=== PATIENT | male | born 1935 | race Caucasian/White ===

== ENCOUNTER → 2020-01-27 | Outpatient (CLI) | payer MEDICARE, OTHER ==
[~2020-01-27] MED LIST: ASPI325EC PO; ASPI81CH; ASPI81EC PO; CLOP75 PO; METO25ER PO; NITRSPRAY SL; RED YEAST RICE; TRAM50 PO; VITAMIN D PO
== END | disposition home or self-care (01) ==
LOC: LAB 14:03 → LAB SHORT 14:03
DX: L72.3 Sebaceous cyst (principal)
CPT/HCPCS: 87070; 87075; 87205

== ENCOUNTER 2025-01-27 10:35 | Inpatient (IN) | payer MEDICARE, BC ==
[~2025-01-27] VITALS: Ht 175.3 cm; Wt 76.4 kg
[~2025-01-27 10:35] MED LIST changes: +Aspir 8181 MG PO
[2025-01-27 12:52] LABS: Creatinine (POC) 0.9 mg/dL (0.8-1.3)
[2025-01-27 13:03] LABS: Base Excess Venous -10.7 mmol/L; Bicarbonate Venous 17.1 mmol/L (24.0-30.0); PCO2 Venous 33.5 mmHg (38-42)
[2025-01-27 13:05] LABS: pH Blood Venous 7.29 (7.34-7.37)
[2025-01-27 13:26] LABS: BASOPHILS ABSOLUTE AUTO 0.02 K/mm3 (0.00-0.23); BASOPHILS PERCENT AUTO 0 % (0-2); EOSINOPHILS PERCENT AUTO 0 % (0-6); Hematocrit 49.9 % (37.0-53.0); Hemoglobin 16.8 g/dL (13.5-17.5); IMMATURE GRAN ABSOLUTE AUTO 0.06 K/mm3 (0.00-0.10); IMMATURE GRAN PERCENT AUTO 0 % (0-1); LYMPHOCYTES ABSOLUTE AUTO 0.41 K/mm3 (0.84-5.20); LYMPHOCYTES PERCENT AUTO 3 % (21-46); MONOCYTES ABSOLUTE AUTO 1.14 K/mm3 (0.16-1.47); MONOCYTES PERCENT AUTO 9 % (4-13); Mean Corpuscular HGB 31.6 pg (26.0-34.0); Mean Corpuscular HGB Conc 33.7 g/dL (31.5-36.5); Mean Corpuscular Volume 94 fL (80-100); Mean Platelet Volume 11.1 fL (9.1-12.4); NEUTROPHILS ABSOLUTE AUTO 11.76 K/mm3 (1.96-9.15); NEUTROPHILS PERCENT AUTO 88 % (41-73); Platelet Count 222 K/mm3 (150-400); RDW Coefficient Variation 13.7 % (11.7-14.2); RDW Standard Deviation 46.7 fL (35.1-46.3); Red Blood Cell Count 5.32 M/mm3 (4.30-5.90); White Blood Cell Count 13.39 K/mm3 (4.00-11.30)
[2025-01-27] MEDS ORDERED: Doxycycline Hyclate 100 MG TAB PO ONE (14:30)
[2025-01-27] MEDS ORDERED: CefTRIAXone Sodium 1,000 MG in NS 100 ML IV ONE (14:30)
[2025-01-27 14:32] LABS: Bun/Creatinine Ratio 63.8 (12.0-20.0); Calcium, Blood 8.9 mg/dL (8.5-10.1); Creatinine, Blood 0.83 mg/dL (0.60-1.20); Potassium, Blood 4.6 mmol/L (3.5-5.5)
[2025-01-27] MEDS ORDERED: Lidocaine 2% Jelly Uro-Jet UR ONE (14:35)
[2025-01-27] MEDS ORDERED: NS 1,000 ML IV SCH ×2 (14:45→16:55)
[2025-01-27 15:12] LABS: Source, Urine Clean Catch
[2025-01-27 15:18] LABS: Appearance, Urine Clear (Clear); Bilirubin, Urine Neg (Neg); Blood, Urine 3+ (Neg); Color, Urine Amber (P-Yellow); Glucose Qualitative, Urine Neg (Neg); Ketones, Urine 4+ (Neg); Leukocyte Esterase, Urine Neg (Neg); Nitrite, Urine Neg (Neg); Protein, Urine 2+ (Neg); Specific Gravity, Urine 1.025 (1.003-1.022); Urobilinogen, Urine NORM (Normal)
[2025-01-27 15:35] LABS: Bacteria Many /hpf; Hyaline Casts 25-50 /lpf (0-2); Mucus Light (0-Heavy); Red Blood Cells, Urine 0-2 /hpf (0-2); Squamous Epithelial Cells Few /hpf (Few)
[2025-01-27] MEDS ORDERED: Doxycycline Hyclate 100 MG in Dextrose 5% 250 ML IV SCH ×2 (17:30→21:00)
[2025-01-27 18:57] VITALS: BP 141/73
[2025-01-27] MEDS ORDERED: Lactobacil 2-S.Thermo-Bifido 1 1 Cap PO SCH (21:00)
[2025-01-28 00:15] VITALS: BP 111/63
[2025-01-28] MEDS ORDERED: Albuterol 2.5 MG/3 ML VIAL INH PRN (03:50)
[2025-01-28 04:23] VITALS: BP 103/61
[2025-01-28 04:52] LABS: Hematocrit 44.4 % (37.0-53.0); Hemoglobin 14.8 g/dL (13.5-17.5); Mean Corpuscular HGB 31.4 pg (26.0-34.0); Mean Corpuscular HGB Conc 33.3 g/dL (31.5-36.5); Mean Corpuscular Volume 94 fL (80-100); Mean Platelet Volume 10.8 fL (9.1-12.4); Platelet Count 151 K/mm3 (150-400); RDW Standard Deviation 48.5 fL (35.1-46.3); Red Blood Cell Count 4.71 M/mm3 (4.30-5.90); White Blood Cell Count 12.24 K/mm3 (4.00-11.30)
--- NOTE | 2025-01-28 05:17 | NUR ---
Shift Summary Pt admitted to this unit from ED for pneumonia. He was found down for days at his residence and has various wounds, most notably an excoriation on his R mar and a large blister on his R abdomen. Pictures are in the chart of all wounds. No wounds are actively bleeding or discharging. He is AOx3, has mumbled speech, extremities are all weak and uncoordinated. He has been lethargic and somnolent t/o the shift. He has a hx of PAD and has very poor peripheral perfusion, finger probe SPO2 readings are unreliable. He is on cont O2 monitor with an ear probe on RA and his SPO2 has been greater than 95% t/o the night with no desaturations. Rcving NS @ 100. Lungs are coarse and he had heavy thick secretions, he's able to cough them up to the back of the throat and than I used bed side suction to remove them which improved his lung sounds and breathing.
[2025-01-28 05:18] LABS: Bun/Creatinine Ratio 54.9 (12.0-20.0); Calcium, Blood 8.4 mg/dL (8.5-10.1); Creatinine, Blood 0.87 mg/dL (0.60-1.20); Magnesium, Blood 2.5 mg/dL (1.6-2.4); Potassium, Blood 4.2 mmol/L (3.5-5.5); Thyroid Stimulating Hormone 2.93 uIU/mL (0.360-4.800)
[2025-01-28 05:19] LABS: BAND PERCENT MAN 22 % (0-8); BASOPHILS PERCENT MAN 0 % (0-2); EOSINOPHILS PERCENT MAN 0 % (0-6); LYMPHOCYTES ABSOLUTE MAN 0.36 K/mm3 (0.84-5.20); LYMPHOCYTES PERCENT MAN 3 % (21-46); METAMYELOCYTE ABSOLUTE MAN 0.12 K/mm3 (0.00-0.00); METAMYELOCYTE PERCENT MAN 1 % (0-0); MONOCYTES ABSOLUTE MAN 0.73 K/mm3 (0.16-1.47); MONOCYTES PERCENT MAN 6 % (4-13); MYELOCYTE ABSOLUTE MAN 0.12 K/mm3 (0.00-0.00); MYELOCYTE PERCENT MAN 1 % (0-0); NEUTROPHILS ABSOLUTE MAN 10.89 K/mm3 (1.96-9.15); SEG NEUTROPHILS PERCENT MAN 67 % (41-73); TOTAL CELLS COUNTED 100
[2025-01-28 07:32] VITALS: BP 109/63
[2025-01-28] MEDS ORDERED: Enoxaparin 40 MG/0.4 ML SYR SC SCH (09:00)
[2025-01-28] MEDS ORDERED: CefTRIAXone Sodium 1,000 MG in NS 100 ML IV SCH (09:00)
[2025-01-28] MEDS ORDERED: Aspirin 81 MG TabEC PO SCH (09:00)
[2025-01-28] MEDS ORDERED: Sodium Bicarbonate 650 MG Tab PO SCH (10:00)
[2025-01-28 15:11] VITALS: BP 136/68
--- NOTE | 2025-01-28 18:27 | NUR ---
SHIFT SUMMARY PT A&OX2 W/ SOME CONFUSION, VSS, BEDRIDDEN AT THIS TIME, VOIDING W/ HOPE IN PLACE, AND DENIED PAIN. PT REMAINS NPO W/ NON ORAL MEDS, SEE SPEECH EVAL NOTE. NS CONT TO INFUSE PER ORDER. SUCTION AT BEDSIDE FOR SECRETIONS, PT UNABLE TO CLEAR ON OWN. NO OTHER ACUTE CHANGES. CALL LIGHT WITHIN REACH AND BED ALARM ON FOR SAFETY. SON AT BEDSIDE ASSISTING W/ CARE.
[2025-01-28 19:21] VITALS: BP 110/56
[2025-01-29 00:02] VITALS: BP 120/72
[2025-01-29 05:16] VITALS: BP 115/69
[2025-01-29 05:26] LABS: BASOPHILS ABSOLUTE AUTO 0.02 K/mm3 (0.00-0.23); BASOPHILS PERCENT AUTO 0 % (0-2); EOSINOPHILS PERCENT AUTO 0 % (0-6); Hematocrit 38.3 % (37.0-53.0); Hemoglobin 12.9 g/dL (13.5-17.5); IMMATURE GRAN ABSOLUTE AUTO 0.03 K/mm3 (0.00-0.10); IMMATURE GRAN PERCENT AUTO 0 % (0-1); LYMPHOCYTES ABSOLUTE AUTO 0.36 K/mm3 (0.84-5.20); LYMPHOCYTES PERCENT AUTO 3 % (21-46); MONOCYTES ABSOLUTE AUTO 1.08 K/mm3 (0.16-1.47); MONOCYTES PERCENT AUTO 9 % (4-13); Mean Corpuscular HGB 31.6 pg (26.0-34.0); Mean Corpuscular HGB Conc 33.7 g/dL (31.5-36.5); Mean Corpuscular Volume 94 fL (80-100); NEUTROPHILS ABSOLUTE AUTO 10.09 K/mm3 (1.96-9.15); NEUTROPHILS PERCENT AUTO 87 % (41-73); Platelet Count 130 K/mm3 (150-400); RDW Coefficient Variation 14.3 % (11.7-14.2); RDW Standard Deviation 49.1 fL (35.1-46.3); Red Blood Cell Count 4.08 M/mm3 (4.30-5.90); White Blood Cell Count 11.58 K/mm3 (4.00-11.30)
--- NOTE | 2025-01-29 05:29 | NUR ---
SHIFT SUMMARY PT DROWSY, SLEEPING INTERMITTENTLY DURING THE NIGHT, ORIENTED X 2-3. PT WITH WEAK COUGH, ABLE TO CLEAR SOME SECRETIONS, ORALLY SUCTIONED NEEDED. PT ON ROOM AIR WITH CONTINUOUS PULSE OX- SATS WNL. PT REMAINS STRICTLY NPO WITH IVF INFUSING. IV ANTIBIOTICS CONTINUE PER ORDER. DRSG TO RUQ BLISTER C/D/I. MEPELEX TO LEFT HIP C/D/I. OPEN WOUND TO RIGHT HERNANDEZ WITH SOME SEROUS DRAINAGE. PT REPOSITIONED Q 2 HOURS WITH PILLOWS. HOPE DRAINING LAURA COLORED URINE, NO BM THIS SHIFT. BED IN LOWEST POSITION, CALL LIGHT WITHIN REACH, SIDERAILS UP X3.
[2025-01-29 05:50] LABS: Bun/Creatinine Ratio 48.6 (12.0-20.0); Calcium, Blood 7.9 mg/dL (8.5-10.1); Creatinine, Blood 0.66 mg/dL (0.60-1.20); Potassium, Blood 3.5 mmol/L (3.5-5.5)
[2025-01-29 07:28] VITALS: BP 132/73
[2025-01-29] MEDS ORDERED: Dextrose 5% 1,000 ML IV SCH (10:20)
[2025-01-29 11:11] VITALS: BP 142/62
[2025-01-29] MEDS ORDERED: FentaNYL Citrate 50 MCG/ML 2 ML Injection IV PRN (11:30)
--- NOTE | 2025-01-29 11:48 | NUR ---
ROUNDED ON PATIENT. HE WAS SLEEPING AT THIS TIME. DISCUSSED CASE WITH BEDSIDE RN AND PROVIDER. DISCUSSED PLAN OF CARE. PATIENTS SON LIVES IN [place].
[2025-01-29 15:44] VITALS: BP 115/68
[2025-01-29] MEDS ORDERED: ZINC OXIDE/PETROLATUM, YELLOW 1 APPLIC/71 GM PASTE TOP PRN (18:05)
--- NOTE | 2025-01-29 19:19 | NUR ---
SHIFT SUMMARY A&O X1. REPOSTION X2. PAINFUL. ORDER OBTAINED FOR FENTANYL IVP. IV CHANGED TO D5 DUE TO INCREASED SODIUM LEVELS. FREQUENT MOUTH CARE. CONTINUE WITH IV ABX. BED IN LOW POSITION. CALL LIGHT WITHIN REACH
[2025-01-29 21:15] VITALS: BP 101/48
[2025-01-30 01:21] VITALS: BP 110/58
[2025-01-30 05:47] LABS: BASOPHILS ABSOLUTE AUTO 0.01 K/mm3 (0.00-0.23); BASOPHILS PERCENT AUTO 0 % (0-2); EOSINOPHILS ABSOLUTE AUTO 0.03 K/mm3 (0.00-0.68); EOSINOPHILS PERCENT AUTO 0 % (0-6); Hematocrit 39.6 % (37.0-53.0); Hemoglobin 13.1 g/dL (13.5-17.5); IMMATURE GRAN PERCENT AUTO 1 % (0-1); LYMPHOCYTES PERCENT AUTO 5 % (21-46); MONOCYTES ABSOLUTE AUTO 1.19 K/mm3 (0.16-1.47); MONOCYTES PERCENT AUTO 9 % (4-13); Mean Corpuscular HGB 31.7 pg (26.0-34.0); Mean Corpuscular HGB Conc 33.1 g/dL (31.5-36.5); Mean Corpuscular Volume 96 fL (80-100); Mean Platelet Volume 10.9 fL (9.1-12.4); NEUTROPHILS ABSOLUTE AUTO 11.13 K/mm3 (1.96-9.15); NEUTROPHILS PERCENT AUTO 85 % (41-73); Platelet Count 110 K/mm3 (150-400); RDW Coefficient Variation 14.3 % (11.7-14.2); RDW Standard Deviation 49.8 fL (35.1-46.3); Red Blood Cell Count 4.13 M/mm3 (4.30-5.90); White Blood Cell Count 13.16 K/mm3 (4.00-11.30)
--- NOTE | 2025-01-30 05:56 | NUR ---
SHIFT SUMMARY: PT AOX1 OBTUNDENT, RESPONDING TO NAME AND ABLE TO ANSWER SOME YES OR NO QUESTIONS. OPENS EYES WIDE AT TIMES AND THEN RETURNS TO SLEEP. SOME PRODUCTIVE COUGH AND EITHER SPITS OUT OR SWALLOWS SPUTUM. PT VERY PAINFUL WITH TURNS, MEDICATED PRIOR TO TURNS AND ORAL CARE PERFORMED WITH TURNS. HOB UP TO PROMOTE COUGH. SOME PRODUCTIVE STRONG COUGHS THEN RETURNS TO SLEEPING. HOPE IN PLACE PRODUCING LITTLE OUTPUT WTH SEDIMENT IN THE URINE. PT COOPERATIVE IN CARE, AND FOLLOWS SOME COMMANDS THOUGH IS VERY WEAK AND NOT ABLE TO ASSIST WITH MUCH. NO ACUTE EVENTS OVERNIGHT. PT IN BED SLEEPING, BED IN LOWEST POSITION, CALL LIGHT IN REACH. CONTINUING CARE.
[2025-01-30 06:09] LABS: Bun/Creatinine Ratio 43.6 (12.0-20.0); Calcium, Blood 8.2 mg/dL (8.5-10.1); Creatinine, Blood 0.57 mg/dL (0.60-1.20); Potassium, Blood 3.3 mmol/L (3.5-5.5)
[2025-01-30 07:13] VITALS: BP 116/67
[2025-01-30] MEDS ORDERED: Potassium Chl 20MEQ/Water100ML 100 ML IV STA (09:11)
[2025-01-30] MEDS ORDERED: NS 250 ML IV PRN (09:40)
[2025-01-30 11:19] VITALS: BP 118/69
[2025-01-30 12:13] LABS: Bilirubin, Total 0.7 mg/dL (0.1-1.0); Magnesium, Blood 2.3 mg/dL (1.6-2.4); Phosphorus, Blood 1.3 mg/dL (2.5-4.9)
--- NOTE | 2025-01-30 12:33 | NUR ---
ROUNDED ON PATIENT. DISCUSSED WITH BEDSIDE RN, PROVIDER, AND DIETITION. PATIENT HAD REFUSED DOBB DOMINIC, BUT WAS AGREEABLE TO IV NUTRITION. PATIENT IS PARTICIPATING MORE IN CONVERSATIONS TODAY. CALLED PATIENTS SON AND UPDATED ON PATIENTS PROGRESS AND PLAN. PROVIDED THERAPUTIC LISTENING. PATIENT WAS INDEPENDENT PRIOR TO THIS. THERE HAD BEEN SOME DISCUSSIONS ABOUT SANAM MOVING TO [place] TO BE CLOSER TO HIS SON. CARLITA RELAYED THAT THEY WILL NEED TO DISCUSS THIS AGAIN.
[2025-01-30] MEDS ORDERED: TPN Consult Notification XX ONE (13:15)
[2025-01-30 15:48] VITALS: BP 115/59
[2025-01-30] MEDS ORDERED: Parenteral Electolytes 40 ML,Potassium Phosphate Dibasic 30 MM,Multivitamins 10 ML,ZINC... IV SCH (17:00)
--- NOTE | 2025-01-30 18:28 | NUR ---
SHIFT SUMMARY PT A&OX2 AND CONFUSED AT TIMES, VSS, BEDRIDDEN AT THIS TIME, NPO, VOIDING URINE VIA HOPE, AND PAIN MANAGED PER EMAR. SPEECH EVAL THIS AM AND PT NOT READY FOR PO INTAKE, SEE THERAPY NOTE. ZAHEER POWERGLIDE PLACED AND PPN INFUSING PER ORDER. K LOW AND IV INF K GIVEN. PT CONT TO BE EDEMATOUS IN THE LUE, VENOUS DUPLEX ORDERED. CALL LIGHT WITHIN REACH.
[2025-01-30 19:31] VITALS: BP 137/79
--- NOTE | 2025-01-30 20:37 | NUR ---
HOSPITALIST CALLED BECAUSE ON DAYSHIFT IMAGING NOTIFIED RN OF Short "segment superficial venous thrombus in the cephalic vein above the level the elbow".I CONTACTED HOSPITALIST AND NOTIFIED HIM OF RESULTS AND OF NOW HE HAD NO FURTHER RECOMENDATIONS AND IS AWARE OF RESULTS. CALLED AT 1954
[2025-01-31] VITALS (7 sets, daily range): BP systolic 124–134; BP diastolic 69–78
--- NOTE | 2025-01-31 04:31 | NUR ---
SHIFT SUMM: PT IS A 89 YP DNR WHO WAS ADMITTED FOR A FALL AND FOUND DOWN AT HOME. PT IS A&OX2-3 AND IS FORGETFUL. PT HAS A PATENT ZAHEER PG WITH PPN INFUSING CONTINUOUSLY @100ML/HR.PT IS NPO FOR DYSPHAGIA AND FAILED SWALLOW STUDY.PT IS VERY WEAK AND CURRENTLY BEDREST. PT IS PAINFUL EVERYWHERE AND MEDICATED PER EMAR.PT HAS OFTEN VOICED TONIGHT THAT "THIS IS NO WAY TO LIVE" AND "I DONT WANT TO KEEP GOING ON LIKE THIS". PT IS ON CONT PULSE OX BUT RA. PT HAS A PATENT HOPE DRAINING TO GRAVITY. PT HAS A SWOLLEN L ARM FROM SUPERFICIAL VENOUS THROMBUS (SEE PREV NOTE). 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 PT HAS A BLISTER IN RUQ, L HIP MEPILEX IN PLACE FOR ULCER PREV. AND SCATTERED SMALL WOUNDS AND BRUSING ALL OVER BODY. PT HAS CALL LIGHT IN REACH AND BED ALARM SET FOR SAFETY.
[2025-01-31 05:41] LABS: BASOPHILS ABSOLUTE AUTO 0.03 K/mm3 (0.00-0.23); BASOPHILS PERCENT AUTO 0 % (0-2); EOSINOPHILS ABSOLUTE AUTO 0.12 K/mm3 (0.00-0.68); EOSINOPHILS PERCENT AUTO 1 % (0-6); Hemoglobin 12.5 g/dL (13.5-17.5); IMMATURE GRAN PERCENT AUTO 1 % (0-1); LYMPHOCYTES ABSOLUTE AUTO 0.71 K/mm3 (0.84-5.20); LYMPHOCYTES PERCENT AUTO 7 % (21-46); MONOCYTES ABSOLUTE AUTO 1.23 K/mm3 (0.16-1.47); MONOCYTES PERCENT AUTO 12 % (4-13); Mean Corpuscular HGB 31.6 pg (26.0-34.0); Mean Corpuscular HGB Conc 32.9 g/dL (31.5-36.5); Mean Corpuscular Volume 96 fL (80-100); Mean Platelet Volume 10.8 fL (9.1-12.4); NEUTROPHILS ABSOLUTE AUTO 7.72 K/mm3 (1.96-9.15); NEUTROPHILS PERCENT AUTO 78 % (41-73); Platelet Count 121 K/mm3 (150-400); RDW Coefficient Variation 14.2 % (11.7-14.2); RDW Standard Deviation 49.4 fL (35.1-46.3); Red Blood Cell Count 3.96 M/mm3 (4.30-5.90); White Blood Cell Count 9.91 K/mm3 (4.00-11.30)
[2025-01-31 06:13] LABS: Anion Gap 8 mmol/L (3-11); Blood Urea Nitrogen 26 mg/dL (8-24); Bun/Creatinine Ratio 41.6 (12.0-20.0); CO2, Blood 26 mmol/L (21-32); Calcium, Blood 7.9 mg/dL (8.5-10.1); Chloride, Blood 112 mmol/L (98-108); Creatinine, Blood 0.63 mg/dL (0.60-1.20); Glomerular Filtration Rate 91 (60-); Glucose, Blood 110 mg/dL (70-99); Magnesium, Blood 2.4 mg/dL (1.6-2.4); Phosphorus, Blood 1.8 mg/dL (2.5-4.9); Potassium, Blood 3.7 mmol/L (3.5-5.5); Sodium, Blood 142 mmol/L (136-145); Triglycerides 113 mg/dL (30-160)
[2025-01-31] MEDS ORDERED: Sodium Phosphate 30 MM in Dextrose 5% 500 ML IV STA (09:41)
[2025-01-31] MEDS ORDERED: Sodium Phosphate 30 MM in Dextrose 5% 500 ML IV SCH (12:00)
[2025-01-31] MEDS ORDERED: FentaNYL Citrate 50 MCG/ML 2 ML Injection IV ONE (15:00)
--- NOTE | 2025-01-31 17:09 | NUR ---
SHIFT SUMMARY: PATIENT A/O TO SELF, PLACED AND PERSON. PATIENT DENIES CP/PRESSURE, SOB, N/V AND DIZZINESS. PATIENT ON TELE, A-FIB, HR IN THE HIGH 80'S BPM c OCCASIONAL PVC. PATIENT WAS SEEN c ST, TODAY. PER ST, OKAY TO HAVE SIP OF H20 VIA SPOON, BUT STILL NPO STATUS. PATIENT REFUSED TUBE FEEDING ROUTE. PER PATIENT NO FEEDING VIA TUBE, STATED "ABSOLUTELY NOT". PATIENT HAS SUPERFACIAL VENOUS THROMBOUS TO L ARM AND STILL SWOLLEN, POWERGLIDE TO R UPPER ARM. PATIENT PPN WAS HELD SINCE 921 THIS AM D/T LIMITED IV ACCESS. DR. KIDD IS AWARE OF THIS CONCERNED. PATIENT RECEIVED IV ABX AND OT DOSE IV SODIUM PHOS PER ORDER. PATIENT REPORTS GENERALIZED PAIN, MEDICATED FOR PAIN PER EMAR c MOD EFFECT. PATIENT WORK c PT TODAY, RECOMMENDING SNF. PATIENT SAT UP IN THE CHAIR FOR ABOUT 3 HRS. PATIENT HAS HOPE FOR ACUTE RETENTION, PATENT DRAINING LAURA COLOR URINE TO GRAVITY. PATIENT REPOSITIONED AND ORAL CARE DONE T/O SHIFT. MIPELEX DRESSING CHANGED TO L HIP AND COCCYX. EXUDRY DRESSING CHANGED TO R ABDOMEN. BED ALARM ON FOR SAFETY. CALL LIGHT IN REACH. UPDATE GIVEN TO PATIENT SON (CARLITA) TODAY, HE VERBALIZED UNDERSTANDING. PER CARLITA HE WILL BE COMING TOMORROW TO VISIT HIS DAD.
[2025-01-31] MEDS ORDERED: NS 1,000 ML BAG IR SCH (21:45)
--- NOTE | 2025-02-01 03:18 | NUR ---
SHIFT SUMMARY PATIENT HAS REQUESTED SOME PAIN MEDICATION AND APPEARS TO BE RESTING COMFORTABLY AT THIS TIME. EARLIER IN THE SHIFT HIS RIGHT POWERGLIDE CLOTTED OFF. IV NURSE CAME WITH US AND PLACED A NEW PERIPHERAL IV. WAS NOTIFIED. PPN BEING HELD UNTIL TOMORROW AND NS AT 75ML HAS BEEN ORDERED. VITAL SIGNS ARE STABLE. IV ABX INFUSED WITHOUT COMPLICATIONS. PATIENT IS ORIENTED X3. HE HAS HIS CALL LIGHT WITHIN REACH AND BED ALARM IS SET. SAFETY PRECAUTIONS ARE BEING MAINTAINED.
[2025-02-01 04:06] VITALS: BP 126/71
[2025-02-01 06:53] LABS: BASOPHILS ABSOLUTE AUTO 0.04 K/mm3 (0.00-0.23); BASOPHILS PERCENT AUTO 0 % (0-2); EOSINOPHILS ABSOLUTE AUTO 0.12 K/mm3 (0.00-0.68); EOSINOPHILS PERCENT AUTO 1 % (0-6); Hematocrit 37.7 % (37.0-53.0); Hemoglobin 12.5 g/dL (13.5-17.5); IMMATURE GRAN ABSOLUTE AUTO 0.13 K/mm3 (0.00-0.10); IMMATURE GRAN PERCENT AUTO 1 % (0-1); LYMPHOCYTES ABSOLUTE AUTO 0.69 K/mm3 (0.84-5.20); LYMPHOCYTES PERCENT AUTO 8 % (21-46); MONOCYTES ABSOLUTE AUTO 1.26 K/mm3 (0.16-1.47); MONOCYTES PERCENT AUTO 14 % (4-13); Mean Corpuscular HGB 31.6 pg (26.0-34.0); Mean Corpuscular HGB Conc 33.2 g/dL (31.5-36.5); Mean Corpuscular Volume 95 fL (80-100); Mean Platelet Volume 10.8 fL (9.1-12.4); NEUTROPHILS ABSOLUTE AUTO 6.93 K/mm3 (1.96-9.15); NEUTROPHILS PERCENT AUTO 76 % (41-73); Platelet Count 128 K/mm3 (150-400); RDW Coefficient Variation 13.9 % (11.7-14.2); RDW Standard Deviation 48.3 fL (35.1-46.3); Red Blood Cell Count 3.96 M/mm3 (4.30-5.90); White Blood Cell Count 9.17 K/mm3 (4.00-11.30)
[2025-02-01 07:10] LABS: Albumin, Blood 1.6 g/dL (3.4-5.0); Anion Gap 10 mmol/L (3-11); Blood Urea Nitrogen 21 mg/dL (8-24); Bun/Creatinine Ratio 37.4 (12.0-20.0); CO2, Blood 24 mmol/L (21-32); Calcium, Blood 7.7 mg/dL (8.5-10.1); Chloride, Blood 111 mmol/L (98-108); Creatinine, Blood 0.56 mg/dL (0.60-1.20); Glomerular Filtration Rate 94 (60-); Glucose, Blood 93 mg/dL (70-99); Magnesium, Blood 2.1 mg/dL (1.6-2.4); Phosphorus, Blood 2.8 mg/dL (2.5-4.9); Potassium, Blood 3.6 mmol/L (3.5-5.5); Sodium, Blood 141 mmol/L (136-145)
[2025-02-01 07:23] VITALS: BP 125/57
[2025-02-01] MEDS ORDERED: TraMADol HCl 50 MG Tab PO PRN (10:00)
--- NOTE | 2025-02-01 10:00 | NUR ---
PT APPEARS TO BE SLEEPING. LYING SUPINE, EYES CLOSED, OCCATIONAL SNORING. WINDMILL TECHNICIAN REPORTED, PT'S POWERGLIDE CLOTTED, PERIPHERAL IV INFILTRATED SO PPN IS ON HOLD. GOC NEEDED RE: NUTRITION. PT'S SON CARLITA IS ENROUTE TO HOSPITAL FROM [place] NOW. CARLITA'S ETA IS [phone]. PLAN: GOC CONVERSATION WITH PT, SON, PROVIDER AND PC THIS AFTERNOON. PRIMARY AND WINDMILL TECHNICIAN NOTIFIED.
[2025-02-01] MEDS ORDERED: Bisacodyl 10 MG Supp PR PRN (14:45)
[2025-02-01] MEDS ORDERED: Docusate Sodium Liquid 100 MG UDC PT PRN (14:45)
--- NOTE | 2025-02-01 15:33 | NUR ---
GOALS OF CARE VISIT WITH PT, SON, PROVIDER AND THIS PC RN. PT LIKES TO BE ADDRESSED "BILL". HE IS A/O X3. ABLE TO MAKE HIS NEEDS KNOWN. PARTICIPATED IN CONVERSATION AND WAS ABLE TO RESTATE WHAT A DOBHOFF IS. CRISTAL IS AGREEABLE TO TRIALING NG TUBE FEED. HE DOES NOT WANT A PEG TUBE. REVIEWED CPR VS DNR AND EACH LEVEL OF MEDICAL INTERVENTIONS LISTED ON THE POLST FORM. CRISTAL ELECTS FOR DNR AND SELECTIVE MEDICAL INTERVENTIONS. POLST FORM FILLED OUT ACCORDINGLY. POLST SIGNED BY PT'S SON CARLITA PER PT'S REQUEST. COMPLETED POLST FAXED TO [facility], OR POLST REGISTRY. SENT TO MEDICAL RECORDS. ORIGINAL AND COPY GIVEN TO SON. SON WILL PLACE ORIGINAL ON PT'S FRIDGE AT HOME. COPY ON FRONT OF CHART.
[2025-02-01 16:46] VITALS: BP 134/72
[2025-02-01] MEDS ORDERED: Furosemide 10 MG/ML 4ML Vial IV SCH (17:00)
[2025-02-01] MEDS ORDERED: CefTRIAXone Sodium 1,000 MG in NS 100 ML IV ONE (17:30)
--- NOTE | 2025-02-01 18:39 | NUR ---
SHIFT SUMMARY PT AOX3/4, COOPERATIVE, ABLE TO MAKE NEEDS KNOWN. DID NOT RECIEVED IV MEDS THIS AM DUE TO NO IV ACCESS AND THEN POSSIBLY ADVANCE CARE PLANNING. THOUGH HAVE DECIDED TO CONTINUE TREATMENT. HAS BEEN BEDREST FOR DURATION OF SHIFT. NPO WITH EXCEPTION OF TEASPOONS OF WATER. NG TUBE PLACED, AWAITING XRAY RESULTS FOR PLACEMENT, BASAL TUBE FEEDING SET UP PREPARED OUTSIDE OF ROOM ON ISO CART. TUBE FEEDING ORDER PLACED. POWERGLIDE NOW IN RIGHT UPPERARM INFUSING NS. BED IN LOWEST POSITION, CALL LIGHT WITHIN REACH.
--- NOTE | 2025-02-01 19:37 | NUR ---
FEEDING TUBE PLACEMENT MD NOTIFIED TO VERIFY FEEDING TUBE PLACEMENT. MD STATED FEEDING TUBE IS APPROPRIATE TO USE.
[2025-02-01 20:26] VITALS: BP 120/65
[2025-02-01] MEDS ORDERED: Doxycycline Hyclate 100 MG TAB PO SCH (21:00)
[2025-02-01] MEDS ORDERED: Cephalexin Monohydrate 500 MG Cap PO SCH (21:00)
[2025-02-01] MEDS ORDERED: Doxycycline Hyclate 100 MG in Dextrose 5% 250 ML IV SCH (21:00)
--- NOTE | 2025-02-02 03:11 | NUR ---
SHIFT SUMMARY PATIENT APPEARS TO BE SLEEPING COMFORTABLY AT THIS TIME. FEEDING TUBE IS INFUSING THROUGH A DOBHOFF AT THIS TIME. NS IS ALSO INFUSING WITHOUT COMPLICATIONS. PATIENT STATED THAT HE WAS STARTED TO FEEL STRONGER. PATIENT HAS BEEN ORIENTED X3. HE HAS HIS CALL LIGHT WITHIN REACH. SAFETY PRECAUTIONS ARE BEING MAINTAINED.
[2025-02-02 03:48] VITALS: BP 106/61
[2025-02-02 05:32] LABS: Bun/Creatinine Ratio 34.4 (12.0-20.0); Calcium, Blood 7.8 mg/dL (8.5-10.1); Creatinine, Blood 0.67 mg/dL (0.60-1.20); Magnesium, Blood 2.2 mg/dL (1.6-2.4); Phosphorus, Blood 2.8 mg/dL (2.5-4.9); Potassium, Blood 3.6 mmol/L (3.5-5.5)
[2025-02-02] MEDS ORDERED: FentaNYL Citrate 50 MCG/ML 2 ML Injection IV PRN (06:45)
[2025-02-02 08:02] VITALS: BP 112/100
[2025-02-02] MEDS ORDERED: CefTRIAXone Sodium 1,000 MG in NS 100 ML IV SCH (09:00)
[2025-02-02] MEDS ORDERED: Furosemide 40 MG Tab PO SCH (09:00)
[2025-02-02 14:56] VITALS: BP 116/60
--- NOTE | 2025-02-02 16:38 | NUR ---
PT ALERT AND ORIENTED X3, SOMEWHAT CONFUSED WITH THE DATE. PT C/O LEG PAIN AT BEGINNING OF SHIFT, BUT AFTER PHYSICAL THERAPY WORKED WITH PT, HIS PAIN HAD RESOLVED WITH ACTIVITY. NON-TELE, RA, DOBHOFF IN PLACE AND PT GETTING CONTINUOUS FEED WITH PUMP AT GOAL RATE OF 70ML/HR WITH 100ML FLUSHES Q6. NS AT 75, IV ABX CONTINUED. PT STATES THAT HE IS FEELING STRONGER TODAY AND OVERALL IMPROVING. HOPE IN PLACE DRAINING DARK YELLOW-LAURA URINE TO GRAVITY. SPEECH THERAPY PLANS TO DO A MODIFIED BARIUM SWALLOW STUDY TOMORROW TO REEVALUATE PT SWALLOWING. CALL LIGHT IN REACH, PT CALLS APPROPRIATLY.
[2025-02-02 19:22] VITALS: BP 117/66
[2025-02-03 04:34] VITALS: BP 131/59
[2025-02-03 05:13] LABS: BASOPHILS ABSOLUTE AUTO 0.03 K/mm3 (0.00-0.23); BASOPHILS PERCENT AUTO 0 % (0-2); EOSINOPHILS ABSOLUTE AUTO 0.35 K/mm3 (0.00-0.68); EOSINOPHILS PERCENT AUTO 4 % (0-6); Hematocrit 33.8 % (37.0-53.0); IMMATURE GRAN ABSOLUTE AUTO 0.19 K/mm3 (0.00-0.10); IMMATURE GRAN PERCENT AUTO 2 % (0-1); LYMPHOCYTES ABSOLUTE AUTO 0.74 K/mm3 (0.84-5.20); LYMPHOCYTES PERCENT AUTO 8 % (21-46); MONOCYTES PERCENT AUTO 11 % (4-13); Mean Corpuscular HGB 31.3 pg (26.0-34.0); Mean Corpuscular HGB Conc 32.5 g/dL (31.5-36.5); Mean Corpuscular Volume 96 fL (80-100); Mean Platelet Volume 10.6 fL (9.1-12.4); NEUTROPHILS ABSOLUTE AUTO 6.52 K/mm3 (1.96-9.15); NEUTROPHILS PERCENT AUTO 74 % (41-73); Platelet Count 168 K/mm3 (150-400); RDW Coefficient Variation 14.1 % (11.7-14.2); RDW Standard Deviation 48.7 fL (35.1-46.3); Red Blood Cell Count 3.51 M/mm3 (4.30-5.90); White Blood Cell Count 8.83 K/mm3 (4.00-11.30)
[2025-02-03 05:33] LABS: Bun/Creatinine Ratio 39.2 (12.0-20.0); Calcium, Blood 7.1 mg/dL (8.5-10.1); Creatinine, Blood 0.59 mg/dL (0.60-1.20); Potassium, Blood 3.3 mmol/L (3.5-5.5)
--- NOTE | 2025-02-03 06:13 | NUR ---
SHIFT SUMMARY PATIENT IS ALERT AND ORIENTED X2. PATIENT HAS HAD NO ACUTE EVENTS THIS SHIFT. VITAL SIGNS REVIEWED. PATIENT HAS HAD NO COMPLAINTS OF PAIN, NAUSEA, SOB OR VOMITTING THIS SHIFT. PATIENT HAS BEEN TURNED Q2. PATIENT HAS HAD CONTINUOUS INFUSIONS VIA [place] PUMP AT 70ML/HR ALL SHIFT. NS 75 RUNNING ALL SHIFT. BED IN LOCKED AND LOWEST POSITION. CALL LIGHT IN PLACE.
[2025-02-03 08:09] VITALS: BP 135/67
[2025-02-03] MEDS ORDERED: Potassium Chloride 20 MEQ/15 ML UDC PT ONE (08:40)
[2025-02-03 15:51] VITALS: BP 139/68
--- NOTE | 2025-02-03 17:12 | NUR ---
NO ACUTE CHANGES THIS SHIFT. PUREE DIET- TOLORATING WELL. CBG WNL ORDERED. TUBE FEED AND FLUSH CUT IN HALF. 2 PERSON MAX ASSIST FROM BED TO CHAIR AND BACK. PT IS VERY MOTIVATED WITH THERAPY. ORIENTED X4, CALLS APPROPRIATELY
[2025-02-03 19:31] VITALS: BP 119/59
[2025-02-03 22:06] VITALS: BP 127/63
[2025-02-04 02:52] VITALS: BP 138/73
[2025-02-04 04:51] LABS: BASOPHILS ABSOLUTE AUTO 0.03 K/mm3 (0.00-0.23); BASOPHILS PERCENT AUTO 0 % (0-2); EOSINOPHILS ABSOLUTE AUTO 0.45 K/mm3 (0.00-0.68); EOSINOPHILS PERCENT AUTO 5 % (0-6); Hematocrit 35.9 % (37.0-53.0); IMMATURE GRAN ABSOLUTE AUTO 0.17 K/mm3 (0.00-0.10); IMMATURE GRAN PERCENT AUTO 2 % (0-1); LYMPHOCYTES ABSOLUTE AUTO 0.79 K/mm3 (0.84-5.20); LYMPHOCYTES PERCENT AUTO 9 % (21-46); MONOCYTES ABSOLUTE AUTO 1.09 K/mm3 (0.16-1.47); MONOCYTES PERCENT AUTO 12 % (4-13); Mean Corpuscular HGB 31.7 pg (26.0-34.0); Mean Corpuscular HGB Conc 33.4 g/dL (31.5-36.5); Mean Corpuscular Volume 95 fL (80-100); Mean Platelet Volume 11.1 fL (9.1-12.4); NEUTROPHILS ABSOLUTE AUTO 6.46 K/mm3 (1.96-9.15); NEUTROPHILS PERCENT AUTO 72 % (41-73); Platelet Count 193 K/mm3 (150-400); RDW Standard Deviation 48.1 fL (35.1-46.3); Red Blood Cell Count 3.78 M/mm3 (4.30-5.90); White Blood Cell Count 8.99 K/mm3 (4.00-11.30)
[2025-02-04 05:13] LABS: Bun/Creatinine Ratio 40.6 (12.0-20.0); Calcium, Blood 7.7 mg/dL (8.5-10.1); Creatinine, Blood 0.62 mg/dL (0.60-1.20)
--- NOTE | 2025-02-04 05:25 | NUR ---
SHIFT SUMMARY NOC PT A/O X 4. PLEASANT AND COOPERATIVE WITH CARE. VSS. MIDNIGHT CBG 121. DOBHOFF IN PLACE INFUSING NUTRITION @ 35.0 ML/HR WITH Q6H FLUSH. PT GIVEN BOWEL CARE RX DURING SHIFT WELL PAIN RX FOR GEN PAIN. PT HAS HOPE IN PLACE WITH LAURA OUTPUT. POWERGLIDE IN ZAHEER. PT WAS ABLE TO TRASFER WITH 2PA FWW, BUT DID NOT TOLERATE IT WELL. PT ABLE TO TOLERATE BEDTIME RX CRUSHED IN APPLESAUCE WELL. ON CONTINOUS PULSE OX SPO2 >92% ON RA. PT CURRENTLY RESTING WITH BED IN LOWEST POSITIN, AND CALL LIGHT WITHIN REACH.
[2025-02-04 07:57] VITALS: BP 110/62
--- NOTE | 2025-02-04 15:18 | NUR ---
SUPPORTIVE VISIT: CRISTAL IS SITTING UP IN BED WITH HIS HEAD TILTED DOWN, RESTING WITH HIS EYES CLOSED. PT EASILY AWAKEN TO NAME BEING CALLED. HE IS A/O X3. ABLE TO MAKE NEEDS KNOWN. VERY POLITE, JOVIAL WITH A DRY SINCE OF HUMOR. DOBHOFF TO LEFT NARE INFUSING JEVITY. CRISTAL ENDORSED EATING "A BIT OF LUNCH. DIDN'T TASTE TO GOOD. THEY DON'T KNOW WHAT SEASONING IS." CRISTAL DOES LIKE ICE CREAM AND IS AGREEABLE TO A MAJIC CUP AT MEAL TIMES. SENIOR INVESTMENT MANAGERKiana IS AGREEABLE WITH RECOMMENDATION. DENTAL HYGIENIST REPORTS THIS AFTERNOON PT HAS ORAL THRUSH. PT HAS NOT HAD A BM THIS ADMISSION. HE DOES NOT RECALL LAST BM. HE WAS FOUND DOWN AFTER 4 DAYS, LIKELY NO BM X 10-12 DAYS. PT AGREEABLE TO SUPPOSITORY. SPOKE WITH PT'S SON CARLITA VIA PHONE THIS AFTERNOON. CARLITA INFORMED THIS PC RN, PT IS TO BE D/C TO SNF AT [facility] TOMORROW 02/05. WITH CONCERN FOR PT'S CONTINUED WEAKNESS AND POOR ORAL INTAKE, CARLITA EXPRESSED CONCERN FOR CRISTAL BEING SO FAR AWAY FROM HIM IS [place]. CARLITA IS CURRENTLY TRYING TO FIGURE OUT A WAY TO TRANSPORT PT TO [place] FOR SNF. CARLITA WOULD LIKE TO SPEAK WITH CARE MANAGEMENT RE: TRANSPORTATION OPTIONS. THIS PC RN ADVISED, IF PT IS ALREADY SET FOR D/C TO , MAYBE CONTINUE WITH CURRENT PLAN UNTIL CARLITA IS ABLE TO ARRANGE TRANSPORT AND LOCATION AROUND THE [facility]. THIS PC RN CALLED CALLED BRENDAN IN . SHE ADVISED SHE WOULD CALL CARLITA TO REVIEW D/C OPTIONS. PLAN: SENIOR INVESTMENT MANAGER TO ORDER MAJIC CUP AND PRUNE JUICE WITH MEALS. BEDSIDE RN TO ADMINISTER SUPPOSITORY THIS AFTERNOON. IF SUPPOSITORY INEFFECTIVE, RECOMMEND SOAP SUDS ENEMA.
[2025-02-04] MEDS ORDERED: Docusate Sodium Liquid 100 MG UDC PT SCH (16:00)
--- NOTE | 2025-02-04 16:44 | NUR ---
SUMMARY NO ACUTE CHANGES THIS SHIFT. TUBE FEEDINGS, IV FLUIDS CONTINUED. PT TOLORATING MOST PO INTAKE. PT DOES NOT LIKE THICKEND LIQUIDS. EDUCATION PROVIDED. 2 PERSON MAX ASSIST TO CHAIR AND TURNS. Q2 HOUR TURNS. JAYY D/C APPROX 1430 02/04/25. ORIENTED X4, CALLS APPROPRIATELY
[2025-02-04] MEDS ORDERED: Nystatin 100,000 Unit/ML Susp 5 ML UDC PO SCH (17:00)
[2025-02-04 20:14] VITALS: BP 105/64
[2025-02-05 06:16] LABS: BASOPHILS ABSOLUTE AUTO 0.04 K/mm3 (0.00-0.23); BASOPHILS PERCENT AUTO 1 % (0-2); EOSINOPHILS ABSOLUTE AUTO 0.38 K/mm3 (0.00-0.68); EOSINOPHILS PERCENT AUTO 4 % (0-6); Hematocrit 35.9 % (37.0-53.0); Hemoglobin 11.7 g/dL (13.5-17.5); IMMATURE GRAN ABSOLUTE AUTO 0.15 K/mm3 (0.00-0.10); IMMATURE GRAN PERCENT AUTO 2 % (0-1); LYMPHOCYTES ABSOLUTE AUTO 0.95 K/mm3 (0.84-5.20); LYMPHOCYTES PERCENT AUTO 11 % (21-46); MONOCYTES ABSOLUTE AUTO 0.85 K/mm3 (0.16-1.47); MONOCYTES PERCENT AUTO 10 % (4-13); Mean Corpuscular HGB 31.5 pg (26.0-34.0); Mean Corpuscular HGB Conc 32.6 g/dL (31.5-36.5); Mean Corpuscular Volume 97 fL (80-100); NEUTROPHILS ABSOLUTE AUTO 6.18 K/mm3 (1.96-9.15); NEUTROPHILS PERCENT AUTO 72 % (41-73); Platelet Count 246 K/mm3 (150-400); RDW Standard Deviation 49.2 fL (35.1-46.3); Red Blood Cell Count 3.72 M/mm3 (4.30-5.90); White Blood Cell Count 8.55 K/mm3 (4.00-11.30)
[2025-02-05 06:37] LABS: Bun/Creatinine Ratio 41.5 (12.0-20.0); Calcium, Blood 8.1 mg/dL (8.5-10.1); Creatinine, Blood 0.63 mg/dL (0.60-1.20)
[2025-02-05 07:31] VITALS: BP 103/63
--- NOTE | 2025-02-05 07:38 | NUR ---
SHIFT SUMMARY; PATIENT SLEPT IN LONG INTRVALS, DID HAVE A BM IN BSC DID HAVE SMALL VOID THEN. AFTER 0430. WAS KAREN TO VOID 100 AND BS WAS 330. GAVE 1 PAIN PILL.
--- NOTE | 2025-02-05 14:44 | NUR ---
DISCHARGE SUMMARY: PATIENT IS IN ROOM WAITING FOR TO AIRCRAFT MANAGER. [employer] WILL TRANSFER TO PATIENT VEHICLE. REMOVED TELEMETRY, NO CARDIAC EVENTS OR REPORTS OF CHEST PAIN OR DISCOMFORT. REMOVED IV, CATHETER INTACT, BANDAGED WITH COBAND AND GAUZE.
[2025-02-05 17:20] VITALS: BP 117/61
--- NOTE | 2025-02-05 19:05 | NUR ---
SHIFT SUMMARY PATIENT A/OX4, ABLE TO MAKE NEEDS KNOWN. PLEASANT AND COOPERATIVE WITH CARE. PATIENT COMPLAINING OF GENERALIZED PAIN, MEDICATED WITH TRAMADOL AND FENTANYL PER NOV. NG TUBE REMOVED ADN TUBE FEEDING DISCONTINUED PER DR. CHRISTOPHER. DR. CHRISTOPHER MADE AWARE OF PATIENT WITH URINARY RETENTION, BLADDER SCAN >400ML THIS AM, STRAIGHT CATHETERIZATION ORDER RECIEVED ADN PERFORMED. 500 ML OBTAINED FROM STRAIGHT CATH, PATIENT TOELRATED WELL. PATIENT HAS SINCE VOIDED INDEPENDENTLY WITH POST VOID RESIDUAL LESS THAN 200ML AT 1630, WILL CONTINUE TO MONITOR. DRESSINGS TO COCCYX, LEFT HIP AND R ABDOMEN CHANGED THIS SHIFT. DIET INCREASED TO SOFT BITE SIZE WITH NECTAR THICK FLUIDS. Q6 CBG DISCONTINUED PER DR. LION. NO OTHER CONCERNS AT THIS TIME, PLAN TO DISCHAREG TOMORROW TO SNF IN [place], [place] AROUND NOON. BEDSIDE SHIFT REPORT COMPLETED WITH DIRECTOR PATIENT FINANCIAL SERVICES RN.
[2025-02-05 20:50] VITALS: BP 112/57
--- NOTE | 2025-02-06 05:00 | NUR ---
Rn shift summary: Patient is alert and oriented. Pt is painful with turning. He continues to have healing scabs and brusies to rt hip, lower extremities, coccyx. Pt continues to be weak and needs assist repositioning. He has fine crackles josesito lung bases. Pt is on RA. Pt medicated x2 for pain. Pt has been encouraged to drink fluids, offered when awake. Pt has voided, urine is concentrated. Plan for pt to transfer to [facility] Sun afternoon. Pt has call light in reach and he is able to make needs known.
[2025-02-06 05:22] VITALS: BP 110/63
[2025-02-06 06:33] LABS: BASOPHILS ABSOLUTE AUTO 0.05 K/mm3 (0.00-0.23); BASOPHILS PERCENT AUTO 1 % (0-2); EOSINOPHILS PERCENT AUTO 5 % (0-6); Hematocrit 35.2 % (37.0-53.0); Hemoglobin 11.4 g/dL (13.5-17.5); IMMATURE GRAN ABSOLUTE AUTO 0.13 K/mm3 (0.00-0.10); IMMATURE GRAN PERCENT AUTO 2 % (0-1); LYMPHOCYTES ABSOLUTE AUTO 0.87 K/mm3 (0.84-5.20); LYMPHOCYTES PERCENT AUTO 10 % (21-46); MONOCYTES ABSOLUTE AUTO 0.81 K/mm3 (0.16-1.47); MONOCYTES PERCENT AUTO 9 % (4-13); Mean Corpuscular HGB 31.1 pg (26.0-34.0); Mean Corpuscular HGB Conc 32.4 g/dL (31.5-36.5); Mean Corpuscular Volume 96 fL (80-100); Mean Platelet Volume 10.4 fL (9.1-12.4); NEUTROPHILS ABSOLUTE AUTO 6.68 K/mm3 (1.96-9.15); NEUTROPHILS PERCENT AUTO 75 % (41-73); Platelet Count 256 K/mm3 (150-400); RDW Standard Deviation 49.2 fL (35.1-46.3); Red Blood Cell Count 3.66 M/mm3 (4.30-5.90); White Blood Cell Count 8.94 K/mm3 (4.00-11.30)
[2025-02-06 06:56] LABS: Bun/Creatinine Ratio 37.4 (12.0-20.0); Calcium, Blood 8.2 mg/dL (8.5-10.1); Creatinine, Blood 0.64 mg/dL (0.60-1.20); Potassium, Blood 4.4 mmol/L (3.5-5.5)
[2025-02-06 07:37] VITALS: BP 120/55
--- NOTE | 2025-02-06 10:03 | NUR ---
SHIFT SUMMARY: PATIENT UP IN CHAIR FOR BREAKFAST THIS AM, A&OX4, ABLE TO MAKE NEEDS KNOWN. PLEASANT AND COOPERATIVE WITH CARE. VOIDING APPROPRIATELY WITH INCONTINENT EPISODES AND USING URINAL. LEFT HIP, COCCYX AND RIGHT ABDOMEN DRESSING CLEAN, DRY, AND INTACT, CHANGED BY RN 02/05/25. TOLERATING SOFT BITE SIZE DIET AND THIN LIQUIDS, APPETITE IS INCREASING. PLAN TO DISCHARGE THIS AFTERNOON TO SNF IN [place], [place] TO BE CLOSER TO SON.
[2025-02-06] MEDS ORDERED: TRAM50 PO (10:29)
[2025-02-06] MEDS ORDERED: VISBIOME 112.51 EACH PO (10:30)
[2025-02-06] MEDS ORDERED: AMOCLA875 PO (10:30)
--- NOTE | 2025-02-06 12:48 | NUR ---
DISCHARGE NOTE PATIENT A/OX4, ABLE TO MAKE NEEDS KNOWN. PLEASANT AND COOPERATIVE WITH CARE. 2 PERSON ASSIST AMBULATION. POWERGLIDE REMOVED PRIOR TO DISCHARGE. PATIENT WITH HOPE CATH REMOVAL 02/04/25, BLADDER SCANNED TODAY SHOWED 320ML AND THEN PATIENT WAS ABLE TO VOID INDEPENDENTLY. INCONTINENT OF BOWEL AND BLADDER DUE TO URGENCY OCCASIONALLY. PATIENT ADMINISTERED TRAMADOL FOR PAIN PRIOR TO DRIVE TO [facility] REPORT ATTEMTPED TO BE GIVEN TO SNF, AWAITING RETURN CALL FROM SHERLYN, ADMITTING NURSE, ONCE HE ARRIVES TO WORK. DRESSINGS TO COCCYX, RIGHT ABDOMEN, AND LEFT HIP REMAIN INTACT THIS MORNING, BUT PRIOR TO LEAVING FACILITY DRESSING [id number] DUE TO SOILAGE. PATIENT WITH ORAL THRUSH, MEDICATED PER NOV. NO OTHER CONCERNS, PATIENT ASSISTED TO WHEELCHAIR TRANMSPORTATION WITH 2 PERSON STAFF ASSIST AND WHEELED OUT OF FACILITY BY TRANSPORTATION STAFF. DISCHARGE PACKET SENT WITH PATIENT WELL ALL BELONGINGS AND HARD SCRIPT FOR TRAMADOL.
--- NOTE | 2025-02-06 13:23 | NUR ---
DISCHARGE SUMMARY: PATIENT ALERT AND ORIENTATED, ABLE TO MAKE NEEDS KNOWN. PLEASANT AND COOPERATIVE WITH CARE. POWERGLIDE REMOVED CANNULA INTACT, BANDAGED WITH ADIEL, PATIENT DISCHARGING TO SNF IN [place], [place]. ATTENDS IN PLACE FOR INCONTINENCE. BELONGINGS WITH PATIENT
--- NOTE | 2025-02-06 13:44 | NUR ---
NURSE TO NURSE REPORT SHERLYN [facility]UM[facility] CALLED TO RECIEVED REPORT REGARDING PATIENT. PATIENT HAS ALREADY LEFT [facility] AND ON HIS WAY TO [place].
[2025-02-08 20:01] LABS: VITAMIN B2 45 nmol/L (5-50)
[2025-02-11 11:49] LABS: VITAMIN B6 PYRIDOXAL 5-PHOSPH 12.9 nmol/L (20.0-125.0)
[2025-02-13 13:31] LABS: NICOTINAMIDE 25 ng/mL; NICOTINIC ACID None Det ng/mL
== END 2025-02-06 12:45 | DRG 871 ==
LOC: ER 10:35 → ERHOLD 16:51 → MEDS 16:51
PROVIDERS: Internal Medicine; Student in an Organized Health Care Education/Training Program; ADMIT Family Medicine
PROC: 3E03329 Introduction of Other Anti-infective into Peripheral Vein, Percutaneous Approach (ICD-10-PCS; principal; 2025-01-27)
PROC: 0T9B70Z Drainage of Bladder with Drainage Device, Via Natural or Artificial Opening (ICD-10-PCS; 2025-01-27)
PROC: 3E0336Z Introduction of Nutritional Substance into Peripheral Vein, Percutaneous Approach (ICD-10-PCS; 2025-01-27)
PROC: 0DH67UZ Insertion of Feeding Device into Stomach, Via Natural or Artificial Opening (ICD-10-PCS; 2025-01-27)
DX: A41.9 Sepsis, unspecified organism (principal); J18.9 Pneumonia, unspecified organism; J96.01 Acute respiratory failure with hypoxia; J69.0 Pneumonitis due to inhalation of food and vomit; E87.20 Acidosis, unspecified; E87.0 Hyperosmolality and hypernatremia; M62.82 Rhabdomyolysis; J44.0 Chronic obstructive pulmonary disease with (acute) lower respiratory infection; L97.919 Non-pressure chronic ulcer of unspecified part of right lower leg with unspecified severity; Z66 Do not resuscitate; I10 Essential (primary) hypertension; R13.10 Dysphagia, unspecified; E78.5 Hyperlipidemia, unspecified; R40.0 Somnolence; I25.10 Atherosclerotic heart disease of native coronary artery without angina pectoris; I48.91 Unspecified atrial fibrillation; I70.203 Unspecified atherosclerosis of native arteries of extremities, bilateral legs; W19.XXXA Unspecified fall, initial encounter; Z95.5 Presence of coronary angioplasty implant and graft; Z98.890 Other specified postprocedural states; Z87.891 Personal history of nicotine dependence; Z79.899 Other long term (current) drug therapy; E83.39 Other disorders of phosphorus metabolism; I25.2 Old myocardial infarction; S00.03XA Contusion of scalp, initial encounter; Z79.82 Long term (current) use of aspirin; Z90.89 Acquired absence of other organs; Z82.49 Family history of ischemic heart disease and other diseases of the circulatory system; R68.0 Hypothermia, not associated with low environmental temperature; S20.321A Blister (nonthermal) of right front wall of thorax, initial encounter; H70.91 Unspecified mastoiditis, right ear; Z91.199 Patient's noncompliance with other medical treatment and regimen due to unspecified reason
CPT/HCPCS: 36415; 51702; 70450; 71045; 71260; 72125; 74177; 74230; 80048; 80069; 81001; 82247; 82550; 82565; 82607; 82746; 82803; 82947; 83605; 83735; 84100; 84207; 84252; 84443; 84478; 84591; 85025; 87040; 87086; 92526; 92610; 92611; 93005; 93010; 93922; 93971; 94760; 94762; 96361; 96365-59; 97110; 97161; 97166; 97530; 97535; 99285-25; A9270; C8929; J0696; J1650; J1938; J3010; J3411; J3480; J7030; J7050; J7060; J7070; Q9957; Q9967